=== PATIENT | female | born 1970 | race Hispanic/Latino ===

== ENCOUNTER 2022-08-17 08:01 | Day surgery (SDC) | payer OTHER ==
[2022-08-15 14:04] VITALS: BMI 36.8
[2022-08-17] MEDS ORDERED: PROPOFOL 0 ML ONE (08:54)
[2022-08-17] MEDS ORDERED: PROPOFOL 40 ML ONE (08:54)
[2022-08-17] MEDS ORDERED: Lidocaine 2% MPF 10 ML AMP (For Epidural Use) ONE (08:54)
[2022-08-17] MEDS ORDERED: PROPOFOL 20 ML ONE ×3 (10:38→11:01)
== END 2022-08-17 11:35 | disposition home or self-care (01) ==
LOC: CSHSDC 08:01
PROVIDERS: ATTEND Internal Medicine Gastroenterology
PROC: 0DBN8ZX Excision of Sigmoid Colon, Via Natural or Artificial Opening Endoscopic, Diagnostic (ICD-10-PCS; principal; 2022-08-17)
DX: Z12.11 Encounter for screening for malignant neoplasm of colon (principal); K55.9 Vascular disorder of intestine, unspecified; K57.30 Diverticulosis of large intestine without perforation or abscess without bleeding; K64.8 Other hemorrhoids; N82.3 Fistula of vagina to large intestine; F17.210 Nicotine dependence, cigarettes, uncomplicated
CPT/HCPCS: 88305; J2704

== ENCOUNTER 2022-10-09 13:47 | Outpatient (CLI) | payer OTHER | END 2022-10-09 13:48 | disposition home or self-care (01) | LOC: CSHRAD 13:47 | PROVIDERS: ATTEND Surgery | DX: N82.3 Fistula of vagina to large intestine (principal) | CPT/HCPCS: 74280 ==